=== PATIENT | male | born 1985 | race Caucasian/White ===

== ENCOUNTER 2020-04-01 18:14 | Emergency (ER) | payer OTHER ==
[~2020-04-01] VITALS: Ht 175.3 cm; Wt 108.9 kg
[2020-04-01 18:17] VITALS: Ht 175.3 cm; Wt 108.9 kg
[2020-04-01 19:43] VITALS: BP 134/69
== END 2020-04-01 19:43 | disposition home or self-care (01) ==
LOC: ED 18:14
DX: U07.1 COVID-19 (principal)
CPT/HCPCS: U0003-CS